=== PATIENT | male | born 1975 | race Caucasian/White ===

== ENCOUNTER 2017-06-16 10:16 | Emergency (ER) | payer OTHER ==
[~2017-06-16] VITALS: Ht 188 cm; Wt 104.3 kg
[2017-06-16] MEDS ORDERED: XANAX0.5 MG PO (11:31)
== END 2017-06-16 11:51 | disposition home or self-care (01) ==
LOC: ED 10:16
DX: F41.0 Panic disorder [episodic paroxysmal anxiety] (principal)
CPT/HCPCS: 70450; 71045; 80053; 84484; 85025; 85610; 85730; 96374; 99284; J2060

== ENCOUNTER 2022-11-03 10:03 | Day surgery (SDC) | payer OTHER ==
[~2022-11-03] VITALS: Ht 182.9 cm; Wt 125.0 kg
[~2022-11-03 10:03] MED LIST: XANAX0.5 MG PO
[2022-11-03] MEDS ORDERED: EFFEXOR XR75 MG PO (10:34)
[2022-11-03] MEDS ORDERED: LOSARTAN-HCTZ1 EACH PO (10:35)
[2022-11-03 10:36] VITALS: BP 133/74
--- NOTE | 2022-11-03 13:54 | NUR ---
11/03/22 1354 Radha Lu SN 1345 PATIENT ARRIVES TO PACU RESPONSIVE TO VERBAL STIMULI. LAYING IN SUPINE POSITION. NC WITH CO MONITOR ON AT 3 LITERS. BACK TO SLEEP WHEN NOT STIMULATED. LIGHT SNORING NOTED. 1353 PATIENT REPOSITIONS SELF TO LEFT SIDE. BACK TO SLEEP WHEN NOT STIMULATED. LIGHT SNORING NOTED. NC CONTINUES AT 3 LITERS.
[2022-11-03 14:37] VITALS: BP 125/98
--- NOTE | 2022-11-06 15:41 | PATH ---
[facility] [address] [facility] [place], [place] [address] Signed SPECIMEN(S): A DESCENDING/LEFT COLON POLYP SPECIMEN(S): B SIGMOID POLYP SPECIMEN SOURCE: A. DESCENDING/LEFT COLON POLYP B. SIGMOID POLYP CLINICAL HISTORY: Colonoscopy. Screening. DX: External hemorrhoids. FINAL PATHOLOGIC DIAGNOSIS: A. Descending/left colon polyp: - Tubular adenoma. - Negative for high-grade dysplasia. B. Sigmoid polyp: - Hyperplastic polyp. - Negative for dysplasia. NA:caw:C2NR MICROSCOPIC EXAMINATION: Histologic sections of all submitted blocks are examined by light microscopy. These findings, together with the gross examination, support the pathologic diagnosis. GROSS DESCRIPTION: A. The specimen, labeled and designated "Garza, descending/left colon polyp," is received in formalin and consists of four mullen soft tissue fragments, ranging from 0.2-0.6 cm. The specimen is entirely submitted in (A1). B. The specimen, labeled and designated "Garza, sigmoid polyp," is received in formalin and consists of one mullen soft tissue fragment, 0.4 cm. The specimen is entirely submitted in (B1). VB (under the direct supervision of a pathologist) The Gross Description was prepared using a voice recognition system. The report was reviewed for accuracy; however, sound-alike word errors, addition and/or deletions may occur. If there is any question about this report, please contact Client Services. PERFORMING LABORATORY: The technical component was performed by [facility], [address] [place] [id number] (CLIA# [id number]). Professional interpretation was PATIENT NAME: ELVIRA GARZA PATHOLOGY DATE OF : 73 REPORT #: [id number] PHYSICIAN: [facility] PCP: JORDON MADDEN MD REPORT IS CONFIDENTIAL AND NOT TO BE RELEASED WITHOUT AUTHORIZATION [facility] [address] [facility] [place] [place] [address] Signed performed by [facility], [address] [place] [address] (CLIA# [id number]). Diagnostician: Morteza Pereyra MD Pathologist Electronically Signed 11/06/2022 Copies: ~ PATIENT NAME: ELVIRA GARZA PATHOLOGY DATE OF : 73 REPORT #: [id number] PHYSICIAN: [facility] PCP: JORDON MADDEN MD REPORT IS CONFIDENTIAL AND NOT TO BE RELEASED WITHOUT AUTHORIZATION
--- NOTE | 2022-11-07 11:23 | OR ---
[facility] [address] [place], [place] [address] Signed DATE OF OPERATION: 11/03/2022 SURGEON: Luis Mariee MD PREOPERATIVE DIAGNOSES: 1. Known external hemorrhoids with episodic rectal bleeding. 2. Supraumbilical hernia. POSTOPERATIVE DIAGNOSIS: 1. Extensive external hemorrhoidal disease. 2. Polyps x2 (sigmoid and left colon). PROCEDURE: Total colonoscopy to cecum with cold snare polypectomy x1 and cold morcellation polypectomy x1. ANESTHESIA: Intravenous sedation; fentanyl 100 mcg, Versed 6 mg total. INDICATION: This 47-year-old white man is a patient of BRENDA Donovan. He [place] in [place] [employer] [place] [employer]. He has noted a supraumbilical hernia, which is reducible and sometimes uncomfortable. Additionally, he is noted to have external hemorrhoidal disease. He has had episodic rectal bleeding. He has no family history of colon cancer. He is admitted to undergo colonoscopy to assess the issue regarding rectal bleeding and may at some point, undergo hernia repair and possible hemorrhoidectomy as well. He understands the risk of bleeding, infection, and perforation related to endoscopy and wished to proceed. FINDINGS: The prep was quite good. Complete colonoscopy was undertaken of the cecum without question. He had two small polyps, one at the left colon at 80 cm, the other in the sigmoid at approximately 25 cm. Both were excised, one with cold snare technique, the other with cold morcellation technique. Additionally, he did have extensive external hemorrhoidal changes. DESCRIPTION OF PROCEDURE: The patient was brought to the endoscopy suite and placed in the lateral decubitus position and given intravenous sedation to the point of slurred speech and nystagmus. Digital rectal examination confirmed significant external hemorrhoidal disease. An Electronically Signed By: LUIS MARIEE MD 11/07/22 1123 PATIENT NAME: ELVIRA SYLVESTER OPERATIVE REPORT DATE OF : 73 REPORT #: [id number] PHYSICIAN: LUIS MARIEE MD PCP: JORDON MADDEN MD REPORT IS CONFIDENTIAL AND NOT TO BE RELEASED WITHOUT AUTHORIZATION [facility] [address] [place], [place] [address] Signed Olympus video colonoscope was passed in the rectum and manipulated throughout the colon ultimately intubating the cecum itself. The ileocecal valve and appendiceal orifice were normal. Scope was withdrawn and examination showed no sign of abnormality until approximately 80 cm from the anal verge consistent with the left colon. The polyp was excised with cold snare technique and passed for pathology. Further withdrawal showed a small polyp also at the sigmoid at approximately 25 cm. This was excised with cold morcellation technique. Further withdrawal showed no other abnormality. Review of the external anal canal confirmed extensive external hemorrhoidal disease. Scope was removed. The patient was taken to recovery room in good condition. CONCLUDING DIAGNOSES: 1. Polyps x2. 2. External hemorrhoidal disease. 3. Supraumbilical hernia. PLAN: Recommend high-fiber diet. Would recommend repeat colonoscopy in three years, sooner if symptoms should develop. Would offer consideration of hemorrhoidectomy as well as repair of small ventral hernia. He will return to see me in approximately four weeks and we will review his pathology reports as well as the plan going forward. Luis Mariee MD JM/MODL /[id number] cc: Sergio Bright PA-C Copies: SERGIO BRIGHT PAC ~ Electronically Signed By: LUIS MARIEE MD 11/07/22 1123 PATIENT NAME: ELVIRA SYLVESTER OPERATIVE REPORT DATE OF : 73 REPORT #: [id number] PHYSICIAN: LUIS MARIEE MD PCP: JORDON MADDEN MD REPORT IS CONFIDENTIAL AND NOT TO BE RELEASED WITHOUT AUTHORIZATION
== END 2022-11-03 14:50 | disposition home or self-care (01) ==
LOC: DS 10:03 → OPS 10:03 → DS 12:00 → OPS 12:00
PROVIDERS: ATTEND Surgery
PROC: 0DBN8ZZ Excision of Sigmoid Colon, Via Natural or Artificial Opening Endoscopic (ICD-10-PCS; 2022-11-03)
PROC: 0DBM8ZZ Excision of Descending Colon, Via Natural or Artificial Opening Endoscopic (ICD-10-PCS; principal; 2022-11-03 12:00)
DX: D12.4 Benign neoplasm of descending colon (principal); K63.5 Polyp of colon; K64.4 Residual hemorrhoidal skin tags; K42.9 Umbilical hernia without obstruction or gangrene; Z90.49 Acquired absence of other specified parts of digestive tract
CPT/HCPCS: 99153; G0500; J2250; J3010; J7121

== ENCOUNTER 2023-01-12 08:42 | Day surgery (SDC) | payer OTHER ==
--- NOTE | 2023-01-07 12:30 | NUR ---
PHONE CALL TO PT NO ANSWER, UNABLE TO LEAVE MESSAGE DUE TO MAILBOX IS FULL. WILL TRY AGAIN LATER TODAY.
--- NOTE | 2023-01-07 14:05 | NUR ---
PHONE CALL TO PT AT THIS TIME, STRAIGHT TO VOICE MAIL, UNABLE TO LEAVE MESSAGE DUE TO MAIL BOX IS FULL.
[~2023-01-12] VITALS: Ht 182.9 cm; Wt 130.0 kg
[~2023-01-12 08:42] MED LIST changes: +EFFEXOR XR75 MG PO; +FENOFIBRATE134 MG PO; +LISINOPRIL10 MG PO; +LOSARTAN-HCTZ1 EACH PO; +MOTRIN IB200 MG PO; +PERCOCET 5-3251 EACH PO; +SIMVASTATIN20 MG PO; +TYLENOL EXTRA500 MG PO; +VENLAFAXINE H37.5 MG PO
[2023-01-12 09:19] VITALS: BP 147/77
[2023-01-12] MEDS ORDERED: IBUPROFEN600 MG PO (12:48)
[2023-01-12] MEDS ORDERED: ACETAMINOPHEN500 MG PO (12:48)
[2023-01-12] MEDS ORDERED: HYDROMORPHONE HC2 MG PO (12:53)
[2023-01-12] MEDS ORDERED: METAMUCIL660 GM PO (12:54)
[2023-01-12 13:21] VITALS: BP 107/52
--- NOTE | 2023-01-12 13:44 | NUR ---
01/12/23 1344 Monica White 1214 PT ARRIVED IN PACU MOANING "IT HURTS, IT HURTS" AND ROLLING AROUND IN BED. 1215 ANESTHESIA GAVE FENTANYL IV ON ARRIVAL. 1220 PT CONTINUES TO LOUDLY MOAN "IT HURTS, IT HURTS." ANESTHESIA GAVE IV TYLENOL. 1230 NO CHANGE IN PT PAIN. RATES IT 12/10. MOVING FROM SIDE TO SIDE TO GET COMFORTABLE. COOL AIR ON FOR COMFORT. ANESTHESIA GAVE IV TORADOL FOR PAIN. 1245 PT CONTINUES TO MOVE AROUND IN BED AND C/O RECTAL PAIN. BP LOW AND SATS 85% ON RA. ENCOURAGED DEEP BREATHING. O2 @ 4L VIA NC PLACED. 1257 PT C/O 8-9/10 RECTAL PAIN. VERSED 2MG GIVEN IV TO HELP PT RELAX. 1310 PT RESTING. 1320 TO DS. REPORT GIVEN TO RN.
[2023-01-12 14:21] VITALS: BP 124/70
--- NOTE | 2023-01-12 14:32 | NUR ---
LE 1320 PATIENT BACK FROM PACU. PATIENT DROWSY BUT STATING "I AM PAINFUL AND I HAVE TO PEE." PATIENT BREATHING EQUAL AND UNLABORED. OXYGEN SATURATIONS ABOVE 95% ON 4 LITERS VIA NASAL CANNULA. PATIENT ROLLING AROUND IN BED. PATIENT RIPPED IV OUT OF PLACE. COBAN AND GAUZE WRAPPED AT SITE. MESH UNDERWEAR ON. ABD PAD IN PLACE. SCD'S REMOVED. LE 1330 PATIENT UP TO SIDE OF BED. PATIENT UNABLE TO VOID. LE 1340 PATIENT UP AGAIN. UNABLE TO VOID AND STATING "LOT OF PRESSURE." LE 1345 DR. MARIEE NOTIFIED. 450 FOUND ON BLADDER SCANNER. STRAIGHT CATH PATIENT FOR 400 MLS OF CLEAR AND YELLOW URINE.
--- NOTE | 2023-01-12 14:47 | NUR ---
LE 1435 PATIENT ALERT AND ORIENTED. PATIENT HAS A 7/10. PATIENT GIVEN PRN PAIN MEDICINE GIVEN. PATIENT DENIES BEING NAUSEATED. PATIENT BREATHING EQUAL AND UNLABORED. OXYGEN SATURATIONS ABOVE 90% ON ROOM AIR. PATIENT HAS MESH UNDERWEAR TO SECURE ABD IN PLACE. PATIENT DRINKING WATER AND EATING CRACKERS AT THIS TIME. AT BEDSIDE. CALL LIGHT WITHIN REACH NO FUTHER NEEDS. NO QUESTIONS AT THIS TIME.
--- NOTE | 2023-01-12 15:04 | NUR ---
LE 1500 PATIENT STATES "I DID NOT THINK I WOULD BE IN THIS MUCH PAIN." PATIENT RESTING IN BED. PATIENT GIVEN WATER AND REPOSITIONED. CALL LIGHT WITHIN REACH NO FUTHER NEEDS. NO QUESTIONS.
[2023-01-12 15:33] VITALS: BP 149/92
--- NOTE | 2023-01-12 15:41 | NUR ---
LE 153 PATIENT ALERT AND ORIENTED. PATIENT STATING PAIN IMPROVING BUT STILL THERE. BREATHING EQUAL AND UNLABORED. OXYGEN SATURATIONS ABOVE 90% ON ROOM AIR. PATIENT RATING PAIN A 7/10 BUT WALKING AROUND UNIT. PATIENT DENIES BEING NAUSEATED. PATIENT DRINKING WATER. HAS NOT VOIDED ON HIS OWN YET.
--- NOTE | 2023-01-12 16:20 | NUR ---
LE 1620 PATIENT GIVEN MORE FLUIDS. PATIENT UNABLE TO VOID AT THIS TIME. CALL LIGHT WITHIN REACH NO FUTHER NEEDS NO QUESTIONS AT THIS TIME.
--- NOTE | 2023-01-12 17:13 | NUR ---
LE 1630 PATIENT WALKING AROUND UNIT. PATIENT STATES PAIN "IS MUCH BETTER." AT SIDE.
--- NOTE | 2023-01-12 17:15 | NUR ---
LE 1715 PATIENT EATING A LUNCH BOX. DR. MARIEE AWARE PATIENT UNABLE TO VOID. PATIENT WILL BE TRANSFERRED TO THE MEDICAL SURGICAL FLOOR FOR SHORT STAY.
[2023-01-12 17:21] VITALS: BP 132/79
--- NOTE | 2023-01-12 17:30 | NUR ---
PATIENT BROUGHT TO MED SURG FROM DAY SURGERY. PATIENT NEEDS TO VOID AND THEN IS ABLE TO GO HOME. PATIENT HAD A BLADDER SCAN DONE AT 1630 AND ONLY HAD 62MLS. PATIENT HAS HAD 2500 FLUID IN AT DAY SURGERY. PATIENT HAS FLUIDS CURRENTLY AND KNOWS TO BE ABLE TO GO HOME HE NEEDS TO URINATE. PATIENT HAD A STRAIGHT CATH IN DAY SURGERY. PATIENT DRESSING C/D/I, FOAM, ABD PADDING, GUAZE AND MESH. NO PAIN. PATIENT DOES NOT HAVE AN IV HE ACCIDENTALLY PULLED IT OUT. DR. JAYLENE THOMAS WITH NO IV. PATIENT INDEPENDENT IN THE ROOM WALKING AROUND. CALL LIGHT GIVEN, EDUCATION ON USING. PATIENT DID EAT DINNER AND TOLERATED WELL.
--- NOTE | 2023-01-12 17:39 | NUR ---
LE 1735 PATIENT TRANSFERRED TO THE MEDICAL SURGICAL FLOOR. PATIENT DISCHARGED. NO QUESTIONS AT THIS TIME. REPORT GIVEN TO CARO GAVIRIA. NO QUESTIONS FROM THIS RN EITHER.
--- NOTE | 2023-01-12 18:16 | NUR ---
PATIENT HAS THE URGE TO PEE PUT FEELS BECAUSE THE PAIN IS NOW INCREASING THAT HE IS NOT ABLE TO. PATIENT REQUESTING MEDICATIONS. SEE EMAR. PATIENT IS DRINKING WATER AND UP AND WALKING IN ROOM TO TRY TO GET THINGS GOING.
--- NOTE | 2023-01-12 19:03 | NUR ---
SHIFT REPORT RECEIVED FROM DAYSHIFT CARO RUDD, pt IN BATHROOM AND ATTEMPTING TO VOID. ALSO IN ROOM. NO NEEDS OR CONCERNS VERBALIZED BY pt AND .
--- NOTE | 2023-01-12 19:55 | NUR ---
pt AMBULATING IN HALLWAY WITH . pt STATES, "I KNOW I HAVE TO GO, BUT I CAN'T. IT FEELS LIKE THERES A DISCONNECT". REMAINS WITH pt DURING AMBULATION.
--- NOTE | 2023-01-12 21:12 | NUR ---
ASSESSMENT COMPLETE, pt AWAKE AND RESTING IN BED. pt HAS MADE MULTIPLE ATTEMTPS TO VOID, ALL UNSUCCESSFUL. pt BLADDER SCANNED, RESULT >487 PER BLADDER SCANNER. pt TOLERATING PO WELL, DENIES NAUSEA AND HAS DRANK MULTIPLE 300MLS BEDSIDE GLASSESS. DR MARIEE UPDATED AND AWARE, pt TO HAVE MARTINEZ CATHETER PLACED AND STARTED ON 0.4MG PO FLOMAX DAILY- TO START TONIGHT. pt TO STAY OVERNIGHT AND MD TO REEVALUATE TOMORROW. pt VERBALIZES UNDERSTANDING, WISHES TO WAIT "A LITTLE BIT" SO HE CAN ATTEMPT ONE MORE TIME TO VOID BEFORE MARTINEZ. PER MD, NO NEED TO PLACE IV OR HAVE pT STARTED ON IV FLUIDS. NO FURTHER NEEDS OR CONCERNS VERBALIZED BY BOTH pt OR , CALL LIGHT IN REACH. GUEST RELATIONS RECEPTIONISTCARO DE LA TORRE UPDATED AND AWARE.
--- NOTE | 2023-01-12 22:45 | NUR ---
kothari, 16 gabonese inserted,sterile field maintained and kothari catheter inserted via protocol. pt grimaced, but overal tolerated well. 750mls yellow urine collected. stat lock in place. fresh ice water provided. remains in room. pt initially declined scheduled tylenol earlier in shift, given now for 8/10 pain. pt reports gel plug fell out earlier in shift while t while attempting to void, now in trash. no further needs or concerns, call light in reach.
[2023-01-12 22:46] VITALS: BP 133/70
--- NOTE | 2023-01-13 00:20 | NUR ---
TELEPHARMACY CALLED TO RETIME pt's SCHEDULED TYLENOL-SEE EMAR.
--- NOTE | 2023-01-13 00:20 | NUR ---
ROUNDED ON pt TO ASSESS PAIN, pt AWAKE AND RESTING ON EDGE OF BED. REPORTS PAIN STILL PRESENT, DID NOT REPORT. ASKS IF ICE/HEAT PACK USED BE USED FOR PAIN R/T MARTINEZ INSERTION, pt DENIES NEED. RT JUDITH CALLED EARLIER IN NIGHT TO ASSESS pt's HOME CPAP MACHINE.
[2023-01-13 02:06] VITALS: BP 124/75
--- NOTE | 2023-01-13 02:17 | NUR ---
ROUNDED ON pt, pt AWAKE AND RESTING IN BED. pt REPORTS HE'S SLEPT "VERY LITTLE" SO FAR. PRN PAIN MEDICATION GIVEN FOR REPORTED 6/10 PAIN, pt DECLINED PRN MOTRIN AT THIS TIME. NO ACUTE CHANGES TO ASSESSMENT, MICHELLE REMAINS PATENT. OUTPUT LIGHT YELLOW IN COLOR, 1000MLS OUTPUT. CALL LIGHT IN REACH.
--- NOTE | 2023-01-13 04:26 | NUR ---
rounded on pt, pt resting in bed with eyes closed. pt resting on left side, rr even and unlabored. no distress noted. cpox shows spo2 92%, hr 80's. call light in reach.
[2023-01-13 05:28] VITALS: BP 124/73
--- NOTE | 2023-01-13 05:34 | NUR ---
pt awoke to voice, reports pain to buttocks 4/10, scheduled tylenol given-see emar. kothari emptied, 1200mls yellow urine collected. vss, fresh ice water provided along with coffee. no additional needs or concerns verbalized, call light in reach. remains in room.
--- NOTE | 2023-01-13 06:41 | NUR ---
this rn called dr meza regarding clarification to pt's kothari catheter. telephone order to dc kothari catheter now and monitor urine output.also updated md on pain management during the night. kothari dc'd, pt tolerated well. call light in reach.
--- NOTE | 2023-01-13 07:27 | NUR ---
REPORT RECEIVED FROM NIGHT RN, ALL QUESTIONS ANSWERED. PT LYING IN BED WITH EYES CLOSED, RESPIRATIONS EVEN AND UNLABORED. AT BEDSIDE. CALL LIGHT IN REACH.
--- NOTE | 2023-01-13 07:40 | NUR ---
IN ROOM WITH DR MARIEE
[2023-01-13] MEDS ORDERED: FLOMAX0.4 MG PO (07:49)
--- NOTE | 2023-01-13 07:50 | NUR ---
ATTEMPT TO COMPLETE ASSESSMENT, PATIENT RESTING WITH EYES CLOSED. RN REQUESTS TO LET PATIENT REST AT THIS TIME SINCE HE DID NOT SLEEP DURING THE NIGHT.
--- NOTE | 2023-01-13 09:30 | NUR ---
PT UP IN RESTROOM ATTEMOTING TO VOID
--- NOTE | 2023-01-13 09:57 | NUR ---
PT UNABLE TO VOID THIS AM, BLADDER SCAN 491. PT WOULD LIKE TO AMBULATE [place] AND ATTEMPT TO VOID AGAIN. IF UNABLE TO VOID AFTER AMBULATION WILL CALL DR MARIEE.
--- NOTE | 2023-01-13 10:24 | NUR ---
PT STILL UNABLE TO VOID, CALL PLACED TO DR MARIEE, NO ANSWER, MESSAGE LEFT. PT EXPRESSED FRUSTRATION WITH THE POSSIBLITY OF ANOTHER CATHERTER PLACEMENT, EXPLAINED THE IMPROATNCE OF DRAINING THE BLADDER WITH CATHETER IF NESSACERY, PT VERBALIZED UNDERSTANDING AT THIS TIME. ENCOURAGED PT TO AMBULATE. WILL ATTEMPT CALL BACK TO DR MARIEE IF NO RETURN CALL.
--- NOTE | 2023-01-13 10:42 | NUR ---
ALERT AND ORIENTED IN ROOM. , DHARA, IN ROOM WELL. PATIENT STATES HE LIVES IN [place]PL[place] L[place]EL HOME WITH , MULTIPLE STAIRS. STATES HE DOES NOT ANTICIPATE DIFFICULTY NAVIGATING HIS HOME UPON DISCHARGE. DRIVES OCCASIONALLY, BUT SPOUSE DRIVES HIM MOST FREQUENTLY. USES CPAP AT HOME, BUT IT IS WORKING WELL AND HE DOES NOT USE ANY OTHER MEDICAL EQUIPMENT. NO FINANCIAL HARDSHIPS, DIFFICULTY GETTING FOOD OR MEDICATIONS. DENIES ANY ANTICIPATION OF NEEDS AT [place]. PATIENT AND SPOUSE VOICE CONCERN ABOUT INABILITY TO URINATE, EDUCATION PROVIDED, QUESTIONS ANSWERED. PATIENT THEN AMBULATES TO TO ATTEMPT TO URINATE AGAIN. INSTRUCTED TO CALL WITH NEEDS OR NOTIFY STAFF OF NEEDS IF PT OR SPOUSE THINK OF ANY. VERBALIZE UNDERSTANDING.
[2023-01-13 10:57] VITALS: BP 133/84
--- NOTE | 2023-01-13 12:01 | NUR ---
PT UNABLE TO VOID, BLADDER SCAN [phone]. CALLED PLACED TO OR CHARGE, VERBAL ORDER FROM DR MARIEE TO PLACE MARTINEZ WITH LEG BAG. PT REQUESTS TO WAIT "30 MINUTES TO ATTEMPT" TO URINATE. IF UNABLE TO VOID WILL RETURN TO INSERT MARTINEZ.
--- NOTE | 2023-01-13 12:46 | NUR ---
PT WALKING HALLWAY. STATES ATTEMPTING TO "GET THINGS MOVING." STATES NEED FOR PRAYER. SAID SILENT PRAYER FOR PROPER BODILY FUNCTIONING.
--- NOTE | 2023-01-13 13:15 | NUR ---
MARTINEZ CATHETER INSERTED PER ORDER, STERILE TECHINIQUE FOLLOWED, UROJET USED. PT C/O 12/14 PAIN WITH INSERTION. PT TOLERATED POORLY RELATED TO PAIN EXPEREINCED. IMMEDIATE RETURN OF 825ML CLEAR YELLOW URINE. PT ATTACHED TO LEG BAG. DENIES FURTHER NEEDS AT THIS TIME. CALL LIGHT IN REACH. AT BEDSIDE.
[2023-01-13 13:38] VITALS: BP 147/85
--- NOTE | 2023-01-13 17:20 | NUR ---
PT PHONE LEFT IN PT ROOM, ATTEMPTING TO CALL NUMBER ON FILE LEADS TO VOICEMAIL, UNABLE TO LEAVE VOICEMAIL D/T FULL MAILBOX. PHONE LEFT AT [employer] WITH PT STICKER.
--- NOTE | 2023-01-15 02:13 | OR ---
[facility] [address] [place], [place] [address] Signed DATE OF OPERATION: 01/12/2023 SURGEON: Luis Mariee MD PREOPERATIVE DIAGNOSIS: Extensive internal and external hemorrhoidal disease. POSTOPERATIVE DIAGNOSIS: Extensive internal and external hemorrhoidal disease. PROCEDURE: Excision of hemorrhoidal complexes x3 (internal and external, left lateral, right posterior, and right anterolateral). ANESTHESIA: Spinal anesthetic with IV sedation, Bhavana Agueda, LICENSED STAFF MFT and local 20 mL of 0.25% Marcaine with epinephrine. INDICATIONS FOR THE PROCEDURE: This 47-year-old white man underwent colonoscopy by me on November 17, 2022. He had two polyps, one hyperplastic, the other adenomatous. He recovered from that well. High fiber diet was recommended based on the rather extensive external hemorrhoidal disease. He has additionally had a supraumbilical hernia, which was repaired in November of 2022. He has had no problems in that regard. He has noted blood per rectum several times and occasional pain on passage of stool and was bothered quite markedly by extensive external and internal hemorrhoidal disease. He does wish to proceed with hemorrhoidectomy. He understands the risk of bleeding, infection, variable degrees of incontinence, and of course postoperative pain that would likely be attended by operative management. He is not a candidate for internal banding alone. He understands the risk of the operation, he wished to proceed with hemorrhoidectomy. FINDINGS: Extensive internal and external hemorrhoidal changes were noted in the dominant columns including the left lateral, right posterior and right anterior aspect. Excision was undertaken. He did have some discomfort during the course of the excision indicating possibly incomplete spinal block, but local anesthesia was additionally used. DESCRIPTION OF PROCEDURE: The patient was brought to the operating room after undergoing a spinal anesthetic in the upright position. He was placed in prone miguelina-knife position. Buttocks were taped Electronically Signed By: LUIS MARIEE MD 01/15/23 0213 PATIENT NAME: ELVIRA SYLVESTER OPERATIVE REPORT DATE OF : 73 REPORT #: [id number] PHYSICIAN: LUIS MARIEE MD PCP: JORDON EVERETT MD REPORT IS CONFIDENTIAL AND NOT TO BE RELEASED WITHOUT AUTHORIZATION [facility] [address] [place], [place] [address] Signed apart. Preoperative antibiotic, Ancef and Flagyl have been given and a bowel prep had been administered as well. Examination of external anal area showed extensive internal and external hemorrhoidal changes. A Gonzalez clamp was applied to the left lateral hemorrhoidal complex, which was the largest. An anal retractor was placed as well. The root of the hemorrhoid above the dentate line was secured with a 3-0 chromic suture. Using electrocautery, wide excision of the hemorrhoidal complex including the external and internal portions was undertaken. The base of the hemorrhoid was doubly secured at completion of the excision and using the chromic suture, the mucosal defect closed in a running configuration, leaving at least 5 mm for external drainage as necessary. Similar excision was undertaken in the right posterior and right anterior or lateral aspect. The patient had a fair amount of discomfort towards the end of the procedure. Additional local anesthetic, Marcaine 0.25% with epinephrine was injected locally. A gel roll with bacitracin was then applied to the anal canal to help and assure hemostasis. The patient was returned to the supine position, ultimately taken to the recovery room in good condition. Blood loss was about 40 mL in aggregate. Sponge, needle, and instrument counts reported as correct x3. MD JOLLY Roman/VENTURAL /[id number] cc: Jordon Everett MD Copies: JORDON EVERETT MD ~ Electronically Signed By: LUIS MARIEE MD 01/15/23 0213 PATIENT NAME: ELVIRA SYLVESTER OPERATIVE REPORT DATE OF : 73 REPORT #: [id number] PHYSICIAN: LUIS MARIEE MD PCP: JORDON EVERETT MD REPORT IS CONFIDENTIAL AND NOT TO BE RELEASED WITHOUT AUTHORIZATION
--- NOTE | 2023-01-15 16:36 | PATH ---
[facility] [address], [place] [address] Signed SPECIMEN(S): A LEFT LATERAL HEMORRHOID COMPLEX SPECIMEN(S): B RIGHT POSTERIOR HEMORRHOID COMPLEX SPECIMEN(S): C RIGHT ANTERIOR HEMORRHOID COMPLEX SPECIMEN SOURCE: A. LEFT LATERAL HEMORRHOID COMPLEX B. RIGHT POSTERIOR HEMORRHOID COMPLEX C. RIGHT ANTERIOR HEMORRHOID COMPLEX CLINICAL HISTORY: Rectal hemorrhage with associated hemorrhoids. FINAL PATHOLOGIC DIAGNOSIS: A. Left lateral hemorrhoid complex: - Benign polypoid anal type mucosa with dilated hemorrhoidal vasculature. B. Right posterior hemorrhoid complex: - Benign polypoid anal type mucosa with dilated hemorrhoidal vasculature. C. Right anterior hemorrhoid complex: - Benign polypoid anal type mucosa with dilated hemorrhoidal vasculature. JVR:[id number] MICROSCOPIC EXAMINATION: Histologic sections of all submitted blocks are examined by light microscopy. These findings, together with the gross examination, support the pathologic diagnosis. GROSS DESCRIPTION: A. The specimen, labeled and designated "Greg, left lateral hemorrhoid," is received in formalin and consists of mucosal and skin tissue fragments that measure 3.3 x 1.9 x 0.8 cm. Sectioning through the specimen reveals dark red, congested submucosal and subcutaneous tissue. Rn Homecare sections are submitted in (A1). B. The specimen, labeled and designated "Greg, right posterior hemorrhoid complex," is received in formalin and consists of mucosal and skin tissue fragment that measures 4.3 x 1.7 x 1.2 cm. Sectioning through the specimen reveals dark red, congested submucosal and subcutaneous tissue. Rn Homecare sections are submitted in (B1). C. The specimen, labeled and designated "Greg, right anterior hemorrhoid complex," is received in formalin and consists of irregular shaped skin and mucosal tissue fragments that measure 2.2 x 1.1 x PATIENT NAME: ELVIRA SYLVESTER PATHOLOGY DATE OF : 73 REPORT #: [id number] PHYSICIAN: STEPHEN SUMMERS PCP: JORDON MADDEN MD REPORT IS CONFIDENTIAL AND NOT TO BE RELEASED WITHOUT AUTHORIZATION [facility] [address] [facility] [place], [place] [address] Signed 0.9 cm. Sectioning through the specimen reveals violaceous, congested submucosal and subcutaneous tissue. Rn Homecare sections are submitted in (C1). JS (under the direct supervision of a pathologist) The Gross Description was prepared using a voice recognition system. The report was reviewed for accuracy; however, sound-alike word errors, addition and/or deletions may occur. If there is any question about this report, please contact Client Services. PERFORMING LABORATORY: Technical component was performed by [facility], [address] [place] [id number] (CLIA# [id number]). Professional interpretation was performed by [facility], [address] [place] [id number] (CLIA#: [id number]). Diagnostician: Matthew Petersen MD Pathologist Electronically Signed 01/15/2023 Copies: ~ PATIENT NAME: ELVIRA SYLVESTER PATHOLOGY DATE OF : 73 REPORT #: [id number] PHYSICIAN: STEPHEN SUMMERS PCP: JORDON MADDEN MD REPORT IS CONFIDENTIAL AND NOT TO BE RELEASED WITHOUT AUTHORIZATION
== END 2023-01-13 16:50 | disposition home or self-care (01) ==
LOC: DS 08:42 → MS 17:30 → DS 01-13 16:50
PROVIDERS: ATTEND Surgery
PROC: 06BY0ZC Excision of Hemorrhoidal Plexus, Open Approach (ICD-10-PCS; principal; 2023-01-12 10:45)
DX: K64.4 Residual hemorrhoidal skin tags (principal); K64.8 Other hemorrhoids; K62.5 Hemorrhage of anus and rectum; K42.9 Umbilical hernia without obstruction or gangrene
CPT/HCPCS: 00902; A9270; J0131; J0690; J1885; J2001; J2250; J2405; J2704; J3010; J3490; J7121